=== PATIENT | male | born 2005 | race Caucasian/White ===

== ENCOUNTER 2024-07-02 18:31 | Emergency (ER) | payer OTHER, SELFPAY ==
[2024-07-02 19:30] VITALS: BP 134/75
--- NOTE | 2024-07-02 21:36 | ED.GENMED ---
History of Present Illness
General
Chief Complaint: Head Injury
Source: patient
Exam Limitations: none
Time Seen by Provider: 07/02/24 20:26
Nursing documentation reviewed up to this point in time: agreed with
History of Present Illness
History of Present Illness:
Patient states he fell while at the [employer] today. Hit back of head on cement barrier. No LOC. Sustained a laceration to posterior scalp. Incident occurred this afternoonl. He was evaluated at and jimmy were placed to scalp
laceration. He was advised to come to ED for head CT. Brought to ED by mother for eval.
Past History
Past History
ED Past Medical History: None
ED Past Surgical History: None
Review of Systems
Review of Systems
Allergies reviewed?: Yes
All Other Systems: ROS reviewed and negative except as documented in HPI and ROS
Constitutional: Reports no symptoms
EENT: Reports no symptoms
Respiratory: Reports no symptoms
Cardiac: Reports no symptoms
ABD/GI: Reports no symptoms
: Reports no symptoms
Musculoskeletal: Reports no symptoms
Skin: Reports other (Laceration to posteior scalp. Repaired iwth jimmy [employer])
Neurological: Reports no symptoms
Psychiatric: Reports no symptoms
Phy Exam
General Physical Exam
General Presentation: well appearing and no apparent distress
General age: appears stated age
General Skin: warm and dry
General Habitus: normal
General Mental: alert
General Hydration: appears well hydrated
Eye Exam
Eye Exam: PERRL, EOMI and conjunctiva normal
Neurological Exam
Neurological Exam: alert, oriented x3, CN II-XII intact, no motor deficits, no sensory deficits and speech normal
[place] Coma Scale
Eye Opening: Spontaneous
Verbal Response: Oriented
Motor Response: Obeys Commands
GCS Total Score: 15
Musculoskeletal Exam
Musculoskeletal Exam: full ROM and neuro vasc intact
Skin Exam
Skin Exam: normal color, warm/dry and no rash
Psychiatric Exam
Psychiatric Exam: normal mood/affect
Course
Orders/Labs/Results
Orders:
Orders
07/02/24 20:24
CT Head W/o Iv Contrast Urgent
Comment:
Reason For Exam: trauma
Vital Signs
Initial and Last Documented VS:
Initial Vital Signs
Temp Resp Pulse Ox
98.3 F 20 99
07/02/24 18:37 07/02/24 18:37 07/02/24 18:37
Last Documented Vital Signs
Temp Pulse Resp BP Pulse Ox
98.3 F 87 18 134/75 98
07/02/24 18:37 07/02/24 19:30 07/02/24 19:30 07/02/24 19:30 07/02/24 19:30
*Radiology
Radiology exam reviewed: radiology read reviewed
*Pulse Oximetry
Patient hypoxic: no
*Critical Care Note
Total Time (30-74mins, 75-104mins- exclusive of procedures): Not Applicable
Update Note
Update Note:
Discussed CT results with patient and mother. No concerning findings on CT or exam tonight. WIll discharge home, close follow upw tih PCP. Given instructions on s/s to return to ED and he is agreeable to plan.
ED Attending Note
-
Portions of this chart may have been created with voice recognition software.� Occasional wrong word or��sound alike� substitutions may have occurred due to the inherent limitations of voice recognition software.
Discharge Plan
Departure
Patient Disposition: Home (Routine Discharge)
Date of Disposition: 07/02/24
Time of Disposition: 21:52
Patient with high blood pressure during this ER visit?: No
Condition: Good
Discharge Problem:
Head injury
Instructions: Head Injury in Adults (DC)
Activity Restrictions/Additional Instructions:
Follow up with your family doctor.
Interventions
Interventions:
*Risk Screen - Suicide Last Done: 07/02/24 19:30
*General Assessment Last Done: 07/02/24 18:37
*Neglect/Abuse Screening Last Done: 07/02/24 19:30
ED- Fall Risk Assessment Last Done: 07/02/24 19:30
*ED COVID-19 Vaccine History Last Done: 07/02/24 19:30
*Nursing Disposition Last Done: 07/02/24 21:57
ED- Neurological Assessment Last Done: 07/02/24 19:30
ED-Skin Assessment Last Done: 07/02/24 19:30
Discharge Date and Time
Discharge Date/Time: 07/02/24 21:57
Print Language: EMIRATI
== END 2024-07-02 21:57 | disposition home or self-care (01) ==
LOC: EMR 18:31
PROVIDERS: EMERGENCY PHYSICIAN Emergency Medicine
DX: S01.01XA Laceration without foreign body of scalp, initial encounter (principal); W19.XXXA Unspecified fall, initial encounter; W22.09XA Striking against other stationary object, initial encounter
CPT/HCPCS: 99284; 70450